=== PATIENT | male | born 1970 | race Caucasian/White ===

== ENCOUNTER 2017-02-04 09:05 | Emergency (ER) | payer OTHER ==
[~2017-02-04] VITALS: Ht 182.9 cm; Wt 104.3 kg
[~2017-02-04 09:05] MED LIST: COLCRYS0.6 M1 PO; INDOMETHACIN25 M1 PO; MOTRIN800 MG PO; PREDNISONE20 M1 PO; ULTRAM50 M1 PO; VICODIN5-300 PO
[2017-02-04 09:08] VITALS: BP 141/81
[2017-02-04] MEDS ORDERED: INDOMETHACIN50 M1 PO (09:39)
[2017-02-04] MEDS ORDERED: COLCRYS0.6 M1 PO (09:39)
--- NOTE | 2017-02-04 09:43 | ED UPPER/LOWER EXTREMITY COMPL ---
History of Present Illness General Chief Complaint: Lower Extremity Problems Stated Complaint: PAIN IN BOTH FEET Source: patient Exam Limitations: no limitations Vital Signs & Intake/Output Vital Signs & Intake/Output Vital Signs Date Time Temp Pulse Resp B/P Pulse O2 O2 Flow FiO2 Ox Delivery Rate 02/04 0913 97 02/04 0908 97.0 96 20 141/81 97 Room Air Allergies Coded Allergies: NO KNOWN ALLERGIES (07/17/16) Triage Note: PT STATES PAIN IN BOTH FEET X 2 DAYS. PT STATES I THINK IT'S MY GOUT Triage Nurses Notes Reviewed? yes HPI: This patient is a 46-year-old male who presented to the emergency department today for evaluation of bilateral foot pain 4 days. The patient reported that the pain is intermittent and worse with weightbearing. He reported that the pain is an 8 out of 10, is throbbing, and nonradiating. The patient reported that he has had gout in the past for which she was treated. The patient is not on any prophylactic treatment for gout. He has not tried taking any medication for his symptoms prior to arrival in the emergency department. The patient denied any fevers, chills, chest pain, difficulty breathing, abdominal pain, nausea, or vomiting. (MARTHA SPENCER,HARDEEP) Reconcile Medications Colchicine (Colcrys) 0.6 MG TABLET 0 PO SEE ADMIN CRITERIA gout 1 tab every hour for 7 hours or until pain resolves you develop nausea, vomiting, diarrhea, or abdominal pain Colchicine (Colcrys) 0.6 MG TABLET 1 TAB PO AD PRN GOUT TAKE 2 TABS ONE HOUR LATER, PLEASE TAKE 1 TAB CONTINUE TO TAKE 1 TAB EVERY HOUR FOR 7 HOURS OR UNTIL PAIN SUBSIDES Indomethacin 25 MG CAPSULE 1-2 CAP PO TID PRN pain with food Indomethacin 50 MG CAPSULE 1 CAP PO TID GOUT with food Prednisone 20 MG TABLET 1 TAB PO BID gout Tramadol HCl (Ultram) 50 MG TABLET 1-2 TAB PO Q6PRN PRN severe pain (JERMAN RAPHAEL,DIDI) Past History Travel History Traveled to [place] past 21 day No Medical History Any Pertinent Medical History? see below for history Neurological: NONE EENT: NONE Cardiovascular: NONE Respiratory: NONE Gastrointestinal: NONE Hepatic: NONE Renal: NONE Musculoskeletal: gout Psychiatric: NONE Endocrine: NONE Blood Disorders: NONE Cancer(s): NONE FABRIC INSPECTOR/Reproductive: NONE Surgical History Surgical History: non-contributory Psychosocial History What is your primary language Afghan Tobacco Use: Never used ETOH Use: occasional use Illicit Drug Use: denies illicit drug use Family History Hx Contributory? No (HARDEEP THOMAS PA-C) Review of Systems Review of Systems Constitutional: Reports: no symptoms. EENTM: Reports: no symptoms. Respiratory: Reports: no symptoms. Cardiovascular: Reports: no symptoms. Gastrointestinal/Abdominal: Reports: no symptoms. Musculoskeletal: Reports: see HPI. Skin: Reports: no symptoms. Neurological/Psychological: Reports: no symptoms. All Other Systems: Reviewed and Negative (HARDEEP THOMAS PA-C) Physical Exam Physical Exam General Appearance: well developed/nourished, no apparent distress, alert, awake Comments: Well-developed well-nourished person in no acute distress HEENT: Normal EENT exam, moist mucous membranes Neck: Supple. Full range of motion Back: Normal gait Cardiovascular: Regular rate and rhythm with no murmurs, rubs, or gallops Respiratory: No respiratory distress. Breath sounds clear to auscultation bilaterally Bilateral lower extremities: Mild amount of erythema with no edema or overlying ecchymosis to the first metatarsal. Full range of motion of the digits. Capillary refill less than 2 seconds. Tenderness to palpation of the first metatarsal. Dorsalis pedis and posterior tibialis pulses 2+ and strong. No evidence of trauma Neuro: Alert oriented x3, motor sensory normal, cranial nerves II through XII grossly intact. Skin: No appreciable rash on exposed skin, skin is warm and dry. Psych: Mood and affect is normal, memory and judgment is normal. (HARDEEP THOMAS PA-C) Progress Differential Diagnosis: arterial insufficiency, cellulitis, compartment syndrome , contusion, dislocation, DVT, fracture, gout, septic arthritis, sprain, tendon injury Plan of Care: Current Medications Sig/Rafy Start time Last Medication Dose Stop Time Status Admin Indomethacin Sodium 25 MG ONCE ONE 02/04 945 UNVr (Indocin 25 MG Cap) 02/04 946 Departure Departure Disposition: HOME OR SELF CARE Condition: Stable Clinical Impression Primary Impression: Gout attack Qualifiers: Gout site: toe Gout etiology: unspecified cause Laterality: unspecified laterality Qualified Code: M10.9 - Gout, unspecified Referrals: Shonna LUZ MD (PCP/Family) Additional Instructions: Take medications as prescribed for gout. Please call to make a follow-up appointment with your primary care physician to discuss further management of your symptoms. Return to the emergency department for any worsening symptoms or concerns. Departure Forms: Customer Survey General Discharge Information Prescriptions: Current Visit Scripts Indomethacin 1 CAP PO TID #30 CAP with food Colchicine (Colcrys) 1 TAB PO AD PRN GOUT #30 TAB TAKE 2 TABS ONE HOUR LATER, PLEASE TAKE 1 TAB CONTINUE TO TAKE 1 TAB EVERY HOUR FOR 7 HOURS OR UNTIL PAIN SUBSIDES (MARTHA SPENCER,HARDEEP) PA/ANALOG IC DESIGN ARCHITECT Co-Sign Statement Statement: ED Attending supervision documentation- [] I saw and evaluated the patient. I have also reviewed all the pertinent lab results and diagnostic results. I agree with the findings and the plan of care as documented in the PA's/ANALOG IC DESIGN ARCHITECT's documentation. x I have reviewed the ED Record and agree with the PA's/ANALOG IC DESIGN ARCHITECT's documentation. [] Additions or exceptions (if any) to the PAs/ANALOG IC DESIGN ARCHITECT's note and plan are summarized below: [] (JERMAN RAPHAEL,DIDI)
== END 2017-02-04 09:50 ==
LOC: ERH 09:05
DX: M10.9 Gout, unspecified (principal)